=== PATIENT | male | born 1980 ===

== ENCOUNTER 2017-08-21 10:44 | Emergency (ER) | payer OTHER ==
[~2017-08-21] VITALS: Ht 188 cm; Wt 108.9 kg
[2017-08-21] MEDS ORDERED: ENALAPRIL MALEAT5 MG (10:49)
== END 2017-08-21 14:19 | disposition home or self-care (01) ==
LOC: ER 10:44
DX: R06.02 Shortness of breath (principal); T65.891A Toxic effect of other specified substances, accidental (unintentional), initial encounter; Y92.69 Other specified industrial and construction area as the place of occurrence of the external cause